=== PATIENT | female | born 1950 | race Hispanic/Latino ===

== ENCOUNTER 2023-02-01 12:45 | Outpatient (CLI) | payer MEDICARE, BC | END 2023-02-01 12:46 | disposition home or self-care (01) | LOC: CSHWCC 12:45 | PROVIDERS: ATTEND Preventive Medicine Undersea and Hyperbaric Medicine | DX: L89.620 Pressure ulcer of left heel, unstageable (principal); T87.89 Other complications of amputation stump | CPT/HCPCS: 11042; 97605; G0463; 99203 ==

== ENCOUNTER 2023-02-07 13:04 | Outpatient (CLI) | payer MEDICARE, BC | END 2023-02-07 13:05 | disposition home or self-care (01) | LOC: CSHWCC 13:04 | PROVIDERS: ATTEND Physician Assistant | DX: T81.31XD Disruption of external operation (surgical) wound, not elsewhere classified, subsequent encounter (principal); S88.111D Complete traumatic amputation at level between knee and ankle, right lower leg, subsequent encounter; E11.52 Type 2 diabetes mellitus with diabetic peripheral angiopathy with gangrene; I73.9 Peripheral vascular disease, unspecified | CPT/HCPCS: 99213; G0463 ==

== ENCOUNTER 2023-02-15 13:14 | Outpatient (CLI) | payer MEDICARE, BC | END 2023-02-15 13:15 | disposition home or self-care (01) | LOC: CSHWCC 13:14 | PROVIDERS: ATTEND Physician Assistant | DX: T81.31XD Disruption of external operation (surgical) wound, not elsewhere classified, subsequent encounter (principal); S88.111D Complete traumatic amputation at level between knee and ankle, right lower leg, subsequent encounter; E11.52 Type 2 diabetes mellitus with diabetic peripheral angiopathy with gangrene; I73.9 Peripheral vascular disease, unspecified | CPT/HCPCS: 97602 ==

== ENCOUNTER 2023-02-28 15:14 | Outpatient (CLI) | payer MEDICARE, BC | END 2023-02-28 15:15 | disposition home or self-care (01) | LOC: CSHWCC 15:14 | PROVIDERS: ATTEND Physician Assistant | DX: T81.31XD Disruption of external operation (surgical) wound, not elsewhere classified, subsequent encounter (principal); S88.111D Complete traumatic amputation at level between knee and ankle, right lower leg, subsequent encounter; E11.52 Type 2 diabetes mellitus with diabetic peripheral angiopathy with gangrene; I73.9 Peripheral vascular disease, unspecified | CPT/HCPCS: 99213; G0463 ==